=== PATIENT | female | born 1990 | race Caucasian/White ===

== ENCOUNTER → 2024-09-11 06:42 | Outpatient (REF) | payer BC, SELFPAY | LOC: RAD 06:42 | PROVIDERS: ATTENDING PHYSICIAN Student in an Organized Health Care Education/Training Program; FAMILY PHYSICIAN Family Medicine | DX: R55 Syncope and collapse (principal) | CPT/HCPCS: 93880 ==

== ENCOUNTER → 2024-11-07 14:47 | Outpatient (REF) | payer BC, SELFPAY | LOC: HWRCS 14:47 | PROVIDERS: ATTENDING PHYSICIAN Internal Medicine Cardiovascular Disease; FAMILY PHYSICIAN Family Medicine | DX: R55 Syncope and collapse (principal) | CPT/HCPCS: 93306 ==

== ENCOUNTER 2025-01-03 22:21 | Emergency (ER) | payer BC, SELFPAY ==
[2025-01-03 22:23] VITALS: BP 146/101
[2025-01-03 23:00] VITALS: BP 134/84; BMI 27.3
--- NOTE | 2025-01-03 23:13 | ED.GENMED ---
History of Present Illness
General
Chief Complaint: DVT/Possible Blood Clot
Source: patient
Exam Limitations: none
Time Seen by Provider: 01/03/25 23:08
Nursing documentation reviewed up to this point in time: agreed with
History of Present Illness
History of Present Illness:
34 yo female with no PMHX, takes oral contraceptives, felt pain in upper left calf at 8 p.m. tonight. Has a friend who had a DVT so she was concerned. Denies SOB, CP.
Did start a new bar Yoga class 3 days ago.
Past History
Past History
ED Past Medical History: None
ED Past Surgical History: None
Social History
Tobacco: Non-smoker
Alcohol: Occasional
Personal: Single
Living: with family
Employment: Employed
Review of Systems
Review of Systems
Allergies reviewed?: Yes
All Other Systems: ROS reviewed and negative except as documented in HPI and ROS
Respiratory: Denies trouble breathing
Cardiac: Denies chest pain
Musculoskeletal: Reports other (left upper calf pain)
Skin: Reports no symptoms
Phy Exam
Physical Exam
Physical Exam:
GENERAL: No acute distress. A&Ox3.
CONSTITUTIONAL: Afebrile.
RESPIRATORY: Regular respirations, nonlabored, lungs clear.
CARDIOVASCULAR: Regular rate and rhythm, no murmurs, no rubs.
GI: Soft, nontender
MUSCULOSKELETAL: Normal appearing left calf. Non tender. Moves with ease. Well perfused.
SKIN: Warm, dry, pink
PSYCH: Normal mood and affect. Well kept, interactive and appropriate
NEUROLOGIC: Awake, alert and oriented. No focal neurological deficits
Course
Orders/Labs/Results
Orders:
Orders
01/03/25 22:25
US Legs, Left [US Periph Venous LOWER Ext LT] Urgent
Comment:
Reason For Exam: left calf pain
Vital Signs
Initial and Last Documented VS:
Initial Vital Signs
Temp Pulse Resp BP Pulse Ox
98.2 F 90 20 146/101 99
01/03/25 22:23 01/03/25 22:23 01/03/25 22:23 01/03/25 22:23 01/03/25 22:23
Last Documented Vital Signs
Temp Pulse Resp BP Pulse Ox
98.2 F 90 20 134/84 100
01/03/25 22:23 01/03/25 22:23 01/03/25 22:23 01/03/25 23:00 01/03/25 23:02
MDM/Problems Addressed
Differential Diagnosis Includes:
DVT, musculoskeletal pain
MDM/Problems Addressed:
34 yo female with no PMHX, takes oral contraceptives, felt pain in upper left calf at 8 p.m. tonight. Has a friend who had a DVT so she was concerned. Denies SOB, CP.
Did start a new bar Yoga class 3 days ago.
US neg for DVT. Pt. reassured.
*Critical Care Note
Total Time (30-74mins, 75-104mins- exclusive of procedures): Not Applicable
ED Attending Note
-
Portions of this chart may have been created with voice recognition software.� Occasional wrong word or��sound alike� substitutions may have occurred due to the inherent limitations of voice recognition software.
Discharge Plan
Departure
Patient Disposition: Home (Routine Discharge)
Date of Disposition: 01/03/25
Time of Disposition: 23:24
Patient with high blood pressure during this ER visit?: No
Condition: Good
Discharge Problem:
Pain of left calf
Instructions: Musculoskeletal Pain
Referrals:
Yolette Bennett DO [Family Provider] -
Activity Restrictions/Additional Instructions:
As we discussed, your ultrasound shows not DVT.
Interventions
Interventions:
*Risk Screen - Suicide Last Done: 01/03/25 23:02
*General Assessment Last Done: 01/03/25 22:23
*Neglect/Abuse Screening Last Done: 01/03/25 23:02
*ED- Fall Risk Assessment Last Done: 01/03/25 23:02
*ED COVID-19 Vaccine History Last Done: 01/03/25 23:02
*Nursing Disposition Last Done: 01/03/25 23:29
ED- Cardiac Assessment Last Done: 01/03/25 23:02
ED- Pulmonary Assessment Last Done: 01/03/25 23:02
ED-Peripheral Vascular Assessment Last Done: 01/03/25 23:02
ED-Skin Assessment Last Done: 01/03/25 23:02
Discharge Date and Time
Discharge Date/Time: 01/03/25 23:30
Print Language: YI
== END 2025-01-03 23:30 | disposition home or self-care (01) ==
LOC: EMR 22:21
PROVIDERS: EMERGENCY PHYSICIAN Emergency Medicine; FAMILY PHYSICIAN Family Medicine
DX: M79.662 Pain in left lower leg (principal); Z79.3 Long term (current) use of hormonal contraceptives
CPT/HCPCS: 99284; 93971

== ENCOUNTER → 2025-08-28 09:14 | Outpatient (REF) | payer BC, SELFPAY | LOC: WDC 09:14 | PROVIDERS: ATTENDING PHYSICIAN Obstetrics & Gynecology Gynecology; FAMILY PHYSICIAN Physician Assistant Medical | DX: N64.4 Mastodynia (principal) | CPT/HCPCS: 76642; 77062; 77066 ==